=== PATIENT | male | born 1945 | race Caucasian/White ===

== ENCOUNTER 2022-09-05 18:50 | Emergency (ER) | payer OTHER ==
[~2022-09-05] VITALS: Ht 182.9 cm; Wt 82.0 kg
[2022-09-05] MEDS ORDERED: PIPERACILLIN-TAZO 4.5GM 100 ML IV ONE (19:30)
[2022-09-05] MEDS ORDERED: SODIUM CHLORIDE 0.9% 1,000 ML IV ONE (19:30)
[2022-09-05 20:25] LABS: Hematocrit 29.6 % (41.0-53.0); Hemoglobin 9.5 g/dL (13.5-17.5); Mean Corpuscular Volume 90.4 fL (80.0-100.0); Red Blood Cells 3.27 10^6/uL (4.5-5.90); Red Cell Distribution Width 13.7 % (11.8-14.3); White Blood Cell 28.7 10^3/uL (4.4-10.8)
[2022-09-05 20:29] LABS: Basophils % (manual) 0 (0.0-2.0); Blast Cells 0; Eosinophils % (manual) 0 (0-7); Metamyelocytes % 0; Myelocytes % 0; Promyelocytes % 0; Reactive Lymphocytes 0
[2022-09-05 20:51] LABS: Band Neutrophils % (manual) 8; Lymphocytes % (manual) 6 (10.0-50.0); Monocytes % (manual) 4 (0-12)
[2022-09-05 21:24] LABS: Albumin 1.5 g/dL (3.4-5.0); Calcium 6.7 mg/dL (8.5-10.1)
[2022-09-05 21:33] LABS: BUN/Creatinine Ratio 8.1 (10.0-20.0); Bilirubin, Total 0.6 mg/dL (0.2-1.0)
[2022-09-05] MEDS: POTASSIUM CHL 20MEQ/100ML 100 ML IV SCH (22:17)
[2022-09-05 22:27] LABS: Urine Bacteria NONE SEEN /hpf (None Seen); Urine Blood 3+ /uL (Negative); Urine Specific Gravity 1.013 (1.001-1.035); Urine WBC 1858 /hpf (0 - 3); Urine WBC Clumps PRESENT /hpf (None Seen)
[2022-09-05 22:29] LABS: Alcohol, Urine < 3.0 mg/dL (0-10); Amphetamine Screen, Urine NEGATIVE (NEGATIVE); Barbiturate Scree,Urine NEGATIVE (NEGATIVE); Benzodiazephine Screen, Urine NEGATIVE (NEGATIVE); Cannabinoid Screen, Urine NEGATIVE (NEGATIVE); Cocaine Screen, Urine NEGATIVE (NEGATIVE); Opiate Scree,Urine NEGATIVE (NEGATIVE); Phencyclidine Screen, Urine NEGATIVE (NEGATIVE)
[2022-09-06] MEDS: POTASSIUM CHL 20MEQ/100ML 100 ML IV SCH (00:08)
[2022-09-06] MEDS ORDERED: InsuLIN REG 1unit/0.01ml Soln (100units/ml) IV ONE (02:30)
[2022-09-06 03:45] VITALS: BP 101/59
== END 2022-09-06 04:06 | disposition short-term general hospital (02) ==
LOC: EDBD 18:50 → ER 18:50
DX: A41.9 Sepsis, unspecified organism (principal); N39.0 Urinary tract infection, site not specified; E11.65 Type 2 diabetes mellitus with hyperglycemia; E87.6 Hypokalemia; E87.1 Hypo-osmolality and hyponatremia; E11.22 Type 2 diabetes mellitus with diabetic chronic kidney disease; I12.0 Hypertensive chronic kidney disease with stage 5 chronic kidney disease or end stage renal disease; N18.6 End stage renal disease; Z99.2 Dependence on renal dialysis; Z88.8 Allergy status to other drugs, medicaments and biological substances
CPT/HCPCS: 36415; 70450; 71045; 80053; 80307; 81001; 83605; 83880; 84484; 85007; 85027; 87040; 87077; 87186; 93005; 96365; 96366; 96368; 96375; 99291; J1815; J2543; J3480

== ENCOUNTER 2023-08-01 07:22 | Inpatient (IN) | payer OTHER ==
[~2023-08-01] VITALS: Ht 177.8 cm; Wt 83.1 kg
[2023-08-01 08:36] LABS: Basophils # (auto) 0.1 10 ^3/uL (0-0.2); Basophils % (auto) 0.4 % (0.0-2.0); Eosinophils # (auto) 0.1 10 ^3/uL (0-0.8); Eosinophils % (auto) 0.5 % (0.0-7.0); Hematocrit 35.1 % (41.0-53.0); Hemoglobin 11.5 g/dL (13.5-17.5); Lymphocytes # (auto) 1.4 10 ^3/uL (0.4-5.4); Lymphocytes % (auto) 8.1 % (10.0-50.0); Mean Corpuscular Hemoglobin 30.3 pg (28.0-32.0); Mean Corpuscular Hgb Conc. 32.6 g/dL (32.0-36.0); Mean Corpuscular Volume 92.8 fL (80.0-100.0); Monocytes # (auto) 1.1 10 ^3/uL (0-1.3); Monocytes % (auto) 6.4 % (0.0-12.0); Neutrophils % (auto) 84.6 % (37.0-80.0); Red Blood Cells 3.79 10^6/uL (4.5-5.90); Red Cell Distribution Width 15.5 % (11.8-14.3); White Blood Cell 16.6 10^3/uL (4.4-10.8)
[2023-08-01 08:51] LABS: Lactic Acid w/Reflex 2.9 mmol/L (0.4-2.0)
[2023-08-01] MEDS: PIPERACILLIN-TAZOB 3.375GM 100 ML IV ONE (09:00)
[2023-08-01] MEDS: DEXTROSE 10% 1,000 ML IV ONE (09:00)
[2023-08-01] MEDS: DEXTROSE 10% 1,000 ML IV SCH (09:01)
[2023-08-01 09:02] LABS: Alanine Aminotransferase 29 U/L (7-40); Alkaline Phosphatase 135 U/L (46-116); Anion Gap 17 (5-15); Aspartate Aminotransferase 60 U/L (13-40); BUN/Creatinine Ratio 4.4 (10.0-20.0); Blood Alcohol < 3.0 mg/dL (<10); Blood Urea Nitrogen 40 mg/dL (9-23); Calcium 7.4 mg/dL (8.5-10.1); Carbon Dioxide 21 mmol/L (20-30); Chloride 98 mmol/L (98-107); Glucose 80 mg/dL (74-106); Sodium 136 mmol/L (136-145)
[2023-08-01 09:03] LABS: Albumin 3.1 g/dL (3.2-4.8); Bilirubin, Total < 0.2 mg/dL (0.2-1.0)
[2023-08-01 09:04] LABS: INR 1.02 (0.9-1.15); Partial Thromboplastin Time 30.6 SEC (24.5-34.5); Prothrombin Time 10.7 sec (9.3-11.8)
[2023-08-01 09:05] LABS: Potassium 2.1 mmol/L (3.5-5.1)
[2023-08-01] MEDS: POTASSIUM CHL 20 Meq TABLET PO ONE ×2 (09:30→17:05)
[2023-08-01] MEDS: CLINDAMYCIN 600MG IV 50 ML IV ONE (12:00)
[2023-08-01] MEDS ORDERED: MORPHINE SULFATE INJ 2 MG/ml SYRG IV PRN (12:00)
[2023-08-01] MEDS ORDERED: NITROGLYCERIN 0.4 MG SL TAB SL PRN (12:00)
[2023-08-01] MEDS ORDERED: hydrALAZINE HCL 20 MG/ML VL IV PRN (12:00)
[2023-08-01] MEDS ORDERED: HYDR1TAB97 PO (12:09)
[2023-08-01] MEDS ORDERED: DOXY-111 PO (12:09)
[2023-08-01] MEDS ORDERED: PANT40T PO (12:09)
[2023-08-01] MEDS ORDERED: DOXY100C4 PO (12:09)
[2023-08-01] MEDS ORDERED: SEVE800T10 PO (12:09)
[2023-08-01] MEDS ORDERED: LEVO112T4 PO (12:09)
[2023-08-01] MEDS ORDERED: GAB100C PO (12:09)
[2023-08-01] MEDS ORDERED: SERT-289 PO (12:09)
[2023-08-01] MEDS ORDERED: FEBU40TA6 PO (12:09)
[2023-08-01] MEDS ORDERED: TRAZ-227 PO (12:09)
[2023-08-01] MEDS ORDERED: GLIP10TA9 PO (12:09)
[2023-08-01] MEDS ORDERED: CEPH500C PO (12:09)
[2023-08-01] MEDS ORDERED: LACT10SO3 PO (12:09)
[2023-08-01] MEDS ORDERED: TRIO1TP TOP (12:09)
[2023-08-01 12:59] VITALS: PULSE 76
[2023-08-01] MEDS: GABAPENTIN 100 MG CAP PO SCH (14:00)
[2023-08-01] MEDS: SEVELAMER 800 MG TAB PO SCH (14:00)
[2023-08-01 16:23] VITALS: PULSE 86; RESP 18; O2SAT 97
[2023-08-01] MEDS: ACETAMINOPHEN 325 MG TAB PO PRN (17:04)
[2023-08-01 17:23] VITALS: BP 156/70; PULSE 87; RESP 20; TEMP 98.4; O2SAT 97
[2023-08-01] MEDS: PERITONEAL DIALYSIS 1.5% SOLN 2,000 ML IP SCH (18:00)
[2023-08-01 19:30] VITALS: RESP 20
[2023-08-01] MEDS: CLINDAMYCIN 600MG IV 50 ML IV SCH (20:00)
[2023-08-01 21:00] VITALS: BP 160/62; PULSE 89; RESP 20; TEMP 97.8; O2SAT 98
[2023-08-01] MEDS: POTASSIUM CHLORIDE 80 MEQ, LIDOCAINE 1% (LOCAL ANESTH.) 6 ML in SODIUM CHL 0.9% 500 ML IV ONE (21:13)
[2023-08-01] MEDS: HEPARIN SODIUM (PORCINE) 5000 UNITS/ML 1ML VIAL SC SCH (22:58)
[2023-08-01] MEDS: HYDROcodone-ACET 5/325MG TAB ONE (23:02)
[2023-08-01] MEDS: HYDROcodone-ACET 5/325MG TAB PO ONE (23:02)
[2023-08-01] MEDS: traZODone HCL 50 MG TAB PO SCH (23:02)
[2023-08-02] VITALS (9 sets, daily range): BP systolic 109–156; BP diastolic 54–79; PULSE 69–87; RESP 15–20; TEMP 97.2–98; O2SAT 94–98
[2023-08-02 05:56] LABS: Basophils # (auto) 0.1 10 ^3/uL (0-0.2); Basophils % (auto) 0.6 % (0.0-2.0); Eosinophils # (auto) 0.4 10 ^3/uL (0-0.8); Eosinophils % (auto) 3.4 % (0.0-7.0); Hematocrit 26.5 % (41.0-53.0); Hemoglobin 8.7 g/dL (13.5-17.5); Lymphocytes % (auto) 24.7 % (10.0-50.0); Mean Corpuscular Hgb Conc. 32.9 g/dL (32.0-36.0); Mean Corpuscular Volume 91.1 fL (80.0-100.0); Monocytes # (auto) 1.2 10 ^3/uL (0-1.3); Neutrophils # (auto) 7.4 10 ^3/uL (1.6-8.6); Neutrophils % (auto) 61.3 % (37.0-80.0); Nucleated Red Blood Cells % 0.1 %; Red Blood Cells 2.91 10^6/uL (4.5-5.90); Red Cell Distribution Width 15.8 % (11.8-14.3); White Blood Cell 12.1 10^3/uL (4.4-10.8)
[2023-08-02 06:05] LABS: Alanine Aminotransferase 19 U/L (7-40); Albumin 2.4 g/dL (3.2-4.8); Alkaline Phosphatase 83 U/L (46-116); Anion Gap 9 (5-15); Aspartate Aminotransferase 42 U/L (13-40); Carbon Dioxide 27 mmol/L (20-30); Chloride 105 mmol/L (98-107); Glucose 67 mg/dL (74-106); Potassium 3.8 mmol/L (3.5-5.1); Sodium 141 mmol/L (136-145)
[2023-08-02 06:06] LABS: Bilirubin, Total 0.2 mg/dL (0.2-1.0); Total Protein 4.5 g/dL (5.7-8.2)
[2023-08-02 06:36] LABS: BUN/Creatinine Ratio 6.3 (10.0-20.0)
[2023-08-02 06:46] LABS: Blood Urea Nitrogen 63 mg/dL (9-23)
[2023-08-02] MEDS: LEVOTHYROXINE SODIUM 112 MCG TAB PO SCH (10:54)
[2023-08-02] MEDS: SERTRALINE HCL 50 MG TAB PO SCH (10:54)
[2023-08-02] MEDS: PANTOPRAZOLE 40 MG TAB PO SCH (10:54)
[2023-08-02] MEDS: MEROPENEM 1GM IVPB 50 ML IV ONE ×2 (12:15→20:18)
[2023-08-02] MEDS ORDERED: VANCOMYCIN PER PHARMACY 0 MG IV SCH (12:15)
[2023-08-02] MEDS ORDERED: MORPHINE SULFATE INJ 2 MG/ml SYRG IV PRN (12:30)
[2023-08-02] MEDS: METOPROLOL TARTRATE 25 MG TAB PO ONE (14:30)
[2023-08-02] MEDS: VANCOMYCIN 1GM/200ML 200 ML IV ONE ×2 (15:00→18:00)
[2023-08-02] MEDS: EPOETIN ALFA-EPBX 4,000 UNIT/ML VIAL SC ONE ×2 (15:15→21:50)
[2023-08-02] MEDS ORDERED: MEROPENEM 500MG IVPB 50 ML IV SCH (16:00)
[2023-08-02 17:05] LABS: Triglycerides 122 mg/dL (< 150)
[2023-08-02 17:06] LABS: LDL Cholesterol 69 mg/dL (< 100)
[2023-08-02 17:07] LABS: Cholesterol 130 mg/dL (< 200); HDL Cholesterol 39 mg/dL (40-59)
[2023-08-02] MEDS: ATORVASTATIN 20 MG TAB PO SCH (21:41)
[2023-08-02] MEDS: METOPROLOL TARTRATE 25 MG TAB PO SCH (21:42)
[2023-08-02] MEDS: HYDROcodone-ACET 5/325MG TAB PO PRN (21:55)
[2023-08-02] MEDS: ACCU-CHEK COMFORT CURVE STRIP VI SCH (23:38)
[2023-08-03 00:55] VITALS: BP 150/66; PULSE 80; RESP 15; TEMP 99.8; O2SAT 94
[2023-08-03 04:59] VITALS: BP 116/56; PULSE 84; RESP 15; TEMP 98.6; O2SAT 93
[2023-08-03 05:26] LABS: Basophils # (auto) 0.1 10 ^3/uL (0-0.2); Eosinophils # (auto) 0.6 10 ^3/uL (0-0.8); Hemoglobin 8.3 g/dL (13.5-17.5); Monocytes # (auto) 1.1 10 ^3/uL (0-1.3); Neutrophils # (auto) 6.3 10 ^3/uL (1.6-8.6)
[2023-08-03 05:28] LABS: Basophils % (auto) 0.9 % (0.0-2.0); Eosinophils % (auto) 5.8 % (0.0-7.0); Hematocrit 25.2 % (41.0-53.0); Lymphocytes # (auto) 2.8 10 ^3/uL (0.4-5.4); Mean Corpuscular Hemoglobin 30.2 pg (28.0-32.0); Mean Corpuscular Hgb Conc. 32.9 g/dL (32.0-36.0); Mean Corpuscular Volume 91.9 fL (80.0-100.0); Monocytes % (auto) 9.9 % (0.0-12.0); Neutrophils % (auto) 57.4 % (37.0-80.0); Red Blood Cells 2.74 10^6/uL (4.5-5.90); Red Cell Distribution Width 16.3 % (11.8-14.3); White Blood Cell 10.9 10^3/uL (4.4-10.8)
[2023-08-03] MEDS: HEPARIN 1,000 UNITS/ml 1ML VIAL XX ONE (05:42)
[2023-08-03 05:46] LABS: Alanine Aminotransferase 20 U/L (7-40); Alkaline Phosphatase 78 U/L (46-116); Anion Gap 11 (5-15); Aspartate Aminotransferase 36 U/L (13-40); BUN/Creatinine Ratio 7.4 (10.0-20.0); Blood Urea Nitrogen 72 mg/dL (9-23); Calcium 6.8 mg/dL (8.7-10.4); Carbon Dioxide 25 mmol/L (20-30); Chloride 102 mmol/L (98-107); Glucose 115 mg/dL (74-106); Potassium 3.4 mmol/L (3.5-5.1); Sodium 138 mmol/L (136-145)
[2023-08-03 05:47] LABS: Albumin 2.1 g/dL (3.2-4.8); Bilirubin, Total < 0.2 mg/dL (0.2-1.0); Total Protein 3.8 g/dL (5.7-8.2)
[2023-08-03 08:00] VITALS: PULSE 76; RESP 18; O2SAT 97
[2023-08-03] MEDS: SEVELAMER 800 MG TAB PO SCH (08:24)
[2023-08-03 09:53] VITALS: BP 157/68; PULSE 84; RESP 18; TEMP 97.3; O2SAT 95
[2023-08-03] MEDS: POTASSIUM CHL 20 Meq TABLET PO ONE (10:03)
[2023-08-03] MEDS: LACTULOSE 20Gm/30ML SOLN PO SCH (10:05)
[2023-08-03] MEDS: ASPirin 81 mg TAB PO SCH (10:05)
[2023-08-03 11:13] LABS: Free T3 1.69 pg/mL (2.3-4.2); Free T4 (Free Thyroxine) 0.56 ng/dL (0.89-1.76)
[2023-08-03 13:05] VITALS: BP 145/66; PULSE 76; RESP 20; TEMP 97.5; O2SAT 94
[2023-08-03 14:41] VITALS: BP 145/68; PULSE 76
[2023-08-03] MEDS ORDERED: VANCOMYCIN 500 MG in D5W 5% 100 ML IV ONE (15:00)
[2023-08-03 15:43] LABS: Urine Bacteria None Seen /hpf (None Seen)
[2023-08-03 15:56] LABS: Urine Amorphous Crystal FEW /hpf (None Seen); Urine Blood 1+ /uL (Negative); Urine Clarity Clear (Clear); Urine Color Light-Yellow (Yellow); Urine Protein, UAD 2+ (Negative); Urine Specific Gravity 1.011 (1.001-1.035); Urine Urobilinogen Normal (Negative); Urine WBC 10 /hpf (0 - 3); Urine pH 5.5 (5.0-9.0)
[2023-08-03] MEDS ORDERED: MEROPENEM 500MG IVPB 50 ML IV SCH (20:00)
== END 2023-08-03 16:21 | disposition short-term general hospital (02) | DRG 871 ==
LOC: ER 07:22 → EDBD 07:22 → TELE 12:06 → TELE-WESTW 12:12 → TELE-CENTR 08-02 09:31
PROVIDERS: ADMIT Nurse Practitioner Family; ATTEND Internal Medicine
DX: A41.9 Sepsis, unspecified organism (principal); I21.A1 Myocardial infarction type 2; I50.43 Acute on chronic combined systolic (congestive) and diastolic (congestive) heart failure; N18.6 End stage renal disease; J18.9 Pneumonia, unspecified organism; E87.20 Acidosis, unspecified; J90 Pleural effusion, not elsewhere classified; I13.2 Hypertensive heart and chronic kidney disease with heart failure and with stage 5 chronic kidney disease, or end stage renal disease; E11.22 Type 2 diabetes mellitus with diabetic chronic kidney disease; E11.649 Type 2 diabetes mellitus with hypoglycemia without coma; E11.65 Type 2 diabetes mellitus with hyperglycemia; E78.5 Hyperlipidemia, unspecified; E87.6 Hypokalemia; L03.032 Cellulitis of left toe; F32.A Depression, unspecified; R62.7 Adult failure to thrive; F41.9 Anxiety disorder, unspecified; E11.621 Type 2 diabetes mellitus with foot ulcer; L97.529 Non-pressure chronic ulcer of other part of left foot with unspecified severity; L97.519 Non-pressure chronic ulcer of other part of right foot with unspecified severity; K59.00 Constipation, unspecified; E03.9 Hypothyroidism, unspecified; D64.9 Anemia, unspecified; E11.51 Type 2 diabetes mellitus with diabetic peripheral angiopathy without gangrene; I70.202 Unspecified atherosclerosis of native arteries of extremities, left leg; F17.200 Nicotine dependence, unspecified, uncomplicated; Z88.8 Allergy status to other drugs, medicaments and biological substances; Z79.4 Long term (current) use of insulin; Z82.49 Family history of ischemic heart disease and other diseases of the circulatory system; Z85.828 Personal history of other malignant neoplasm of skin; Z99.2 Dependence on renal dialysis; Z68.23 Body mass index [BMI] 23.0-23.9, adult
CPT/HCPCS: 36415; 70450; 71045; 73718; 74176; 76700; 80053; 80061; 80202; 80307; 80320; 81001; 82962; 83036; 83605; 83880; 84132; 84436; 84439; 84443; 84481; 84484; 85025; 85379; 85610; 85730; 87040; 93005; 93306; 93925; 96365; 96366; 97110; 97116; 97163; 97530; G0378; J2001; J2185; J3490; J7060